=== PATIENT | male | born 1935 | race Caucasian/White ===

== ENCOUNTER 2023-07-29 07:55 | Emergency (ER) | payer BC ==
[2023-07-29 08:46] LABS: #Monocytes 0.6 thou/uL (0.11-0.59); #Neutrophils 2.4 thou/uL (1.40-6.50); %Eosinophils 0.2 % (0.0-10.0); %Lymphocytes 34.6 % (21.0-51.0); %Monocytes 13.2 % (0.0-10.0); %Neutrophils 51.6 % (42.0-75.0); Hematocrit 42.1 % (42.0-52.0); Hemoglobin 13.8 g/dL (14.0-18.0); Mean Corpuscular HGB CONC 32.8 g/dL (32.0-36.0); Mean Corpuscular Hemoglobin 26.2 pg (27.0-31.0); Mean Platelet Volume 10.9 fL (7.4-10.4); RBC Distribution Width 15.3 % (11.5-14.5); Red Blood Cell (RBC) Count 5.26 mill/uL (4.70-6.10); White Blood Cell (WBC) Count 4.6 10x3/uL (4.8-10.8)
[2023-07-29 08:48] LABS: Platelet Count 121 10x3/uL (130-400)
[2023-07-29 09:09] LABS: ALT (SGPT) 11 U/L (8-55); AST (SGOT) 16 U/L (5-34); Albumin 4.4 g/dL (3.4-4.8); Alkaline Phosphatase 79 U/L (40-110); Anion Gap 14 mmol/L (10-20); BUN (Urea Nitrogen) 30 mg/dL (8.4-25.7); Bilirubin, Total 0.5 mg/dL (0.2-1.2); Calc. Creatinine Clearance 0 mL/min (70-130); Carbon Dioxide 18 mmol/L (23-31); Chloride 109 mmol/L (98-107); Estimated GFR 32; Globulin 3.1 g/dL (2.4-3.5); Glucose 92 mg/dL (83-110); Potassium 5.5 mmol/L (3.5-5.1); Protein, Total 7.5 g/dL (5.8-8.1); Sodium 135 mmol/L (136-145); Uric Acid 6.4 mg/dL (3.5-7.2)
[2023-07-29] MEDS ORDERED: Vancomycin 1.5 GRAM/300 ML BAG 1.5 GM in Premix Bag 1 BAG IVPB SCH (09:45)
== END 2023-07-29 13:29 | disposition left against medical advice (07) ==
LOC: ERS 07:55
DX: M86.141 Other acute osteomyelitis, right hand (principal); E11.40 Type 2 diabetes mellitus with diabetic neuropathy, unspecified; Z87.891 Personal history of nicotine dependence; Z79.84 Long term (current) use of oral hypoglycemic drugs; Z79.899 Other long term (current) drug therapy
CPT/HCPCS: 36415; 80053; 84550; 85025; 96365; 96366; 96368; J0744; J3370

== ENCOUNTER 2023-08-01 13:55 | Day surgery (SDC) | payer BC ==
[~2023-08-01 13:55] MED LIST: VANCOMYCIN 1.25 GM/250 ML BAG 1.25 GM in Premix Bag 1 BAG IVPB SCH
[2023-08-01 16:15] VITALS: BP 150/72; TEMP 97.7
== END 2023-08-01 17:10 | disposition home or self-care (01) ==
LOC: ONC/OP 13:55
PROVIDERS: ATTEND Family Medicine
DX: M86.241 Subacute osteomyelitis, right hand (principal); M79.644 Pain in right finger(s); Z87.891 Personal history of nicotine dependence; Z90.49 Acquired absence of other specified parts of digestive tract; Z88.0 Allergy status to penicillin; Z79.899 Other long term (current) drug therapy
CPT/HCPCS: 96365; 96367; J0744; J3370

== ENCOUNTER 2023-10-08 10:06 | Inpatient (IN) | payer BC ==
[2023-10-08 10:41] LABS: Hematocrit 44.7 % (42.0-52.0); Hemoglobin 14.3 g/dL (14.0-18.0); Mean Corpuscular Hemoglobin 25.7 pg (27.0-31.0); Mean Corpuscular Volume 80.4 fl (78.0-98.0); Mean Platelet Volume 11.9 fL (7.4-10.4); Platelet Count 108 10x3/uL (130-400); RBC Distribution Width 15.7 % (11.5-14.5); Red Blood Cell (RBC) Count 5.56 mill/uL (4.70-6.10); White Blood Cell (WBC) Count 21.7 10x3/uL (4.8-10.8)
[2023-10-08 10:50] LABS: Delete Auto Diff?? YES; Manual Diff?? YES
[2023-10-08 11:03] LABS: ALT (SGPT) 10 U/L (8-55); AST (SGOT) 25 U/L (5-34); Albumin 3.9 g/dL (3.4-4.8); Alkaline Phosphatase 80 U/L (40-110); Anion Gap 18 mmol/L (10-20); BUN (Urea Nitrogen) 55 mg/dL (8.4-25.7); Bilirubin, Total 1.8 mg/dL (0.2-1.2); Calc. Creatinine Clearance 0 mL/min (70-130); Calcium 9.8 mg/dL (7.8-10.44); Carbon Dioxide 20 mmol/L (23-31); Chloride 103 mmol/L (98-107); Estimated GFR 18; Globulin 3.8 g/dL (2.4-3.5); Glucose 173 mg/dL (83-110); Potassium 4.1 mmol/L (3.5-5.1); Protein, Total 7.7 g/dL (5.8-8.1); Sodium 137 mmol/L (136-145)
[2023-10-08 11:11] LABS: Band 13 % (5-11); Burr Cells SLIGHT = 2-5 cells HPF (0-1); CellaVision Operator ID LAB.NR; Large Platelets 2.9 % (0-5); Lymphocytes 1 % (21-51); Monocytes 10 % (0-10); Neutrophil 76 % (42-75); Platelet Adequacy Comment Platelets Decreased; Polychromasia SLIGHT = 2-3 cells HPF (0-2); Smudge Cells 3.9 %; Total Cell Count 103; Troponin I 0.036 ng/mL (< 0.028)
[2023-10-08] MEDS ORDERED: Azithromycin 500 MG VIAL ONE (11:18)
[2023-10-08 11:26] LABS: SARS-CoV-2 NAA Rapid Test Not Detected (NotDetected)
[2023-10-08] MEDS ORDERED: cefTRIAXone (ROCEPHIN) 2 GM VIAL ONE (11:26)
[2023-10-08] MEDS ORDERED: Sodium Chloride 0.9% 100 ML ONE (11:26)
[2023-10-08 13:59] LABS: Lactic Acid 2.6 mmol/L (0.5-2.2)
[2023-10-08] MEDS ORDERED: Dextrose 50% Abboject 50 ML SYRINGE SLOW IVP PRN (14:01)
[2023-10-08] MEDS ORDERED: HumaLOG 300 UNITS/3 ML VIAL SC PRN (14:01)
[2023-10-08] MEDS ORDERED: Glucagon 1 MG/ML KIT IM PRN (14:01)
[2023-10-08] MEDS ORDERED: Dextrose 5% in Water 1,000 ML IV PRN (14:01)
[2023-10-08] MEDS ORDERED: HYDROcodone/Acetaminophen 5/325 mg Tablet PO PRN (14:04)
[2023-10-08 16:25] LABS: Bacteria/HPF 1+ HPF (None Seen); Bilirubin Negative (Negative); Blood, Urine 3+ (Negative); CAUTI Indications for Culture Acute Hematuria; Clarity Turbid (Clear); Glucose, Urine (Dipstick) Normal (Negative); Ketone, Urine Negative (Negative); Leukocyte Negative Leu/uL (Negative); Nitrite Negative (Negative); Protein, Urine (Dipstick) 100 mg/dL (Neg-Trace); RBC/HPF Greater than 50 HPF (0-3); Specific Gravity, Urine 1.024 (1.002-1.036); Squamous Epithelial 0-3 HPF (0-3); Urobilinogen Normal mg/dL (Less than 2); WBC/HPF 0-3 HPF (0-3); pH, Urine 5.5 (5.0-9.0)
[2023-10-08 16:26] LABS: Urine Culture Reflex No No
[2023-10-08 16:42] VITALS: BMI 28.7
[2023-10-08] MEDS: Heparin 5,000 UNITS/ML VIAL SC SCH ×3 (16:46→21:16)
[2023-10-08] MEDS: Sodium Chloride 0.9% 1,000 ML IV SCH (16:57)
[2023-10-08 18:37] LABS: Troponin I 0.031 ng/mL (< 0.028)
[2023-10-08] MEDS ORDERED: Atorvastatin Calcium 10 MG TAB PO SCH (21:00)
[2023-10-08] MEDS: Famotidine 20 MG TAB PO SCH (21:15)
[2023-10-09] MEDS: Sodium Chloride 0.9% 1,000 ML IV SCH ×2 (03:28→10:25)
[2023-10-09 07:13] LABS: Hematocrit 37.3 % (42.0-52.0); Hemoglobin 11.7 g/dL (14.0-18.0); Mean Corpuscular HGB CONC 31.4 g/dL (32.0-36.0); Mean Corpuscular Hemoglobin 25.8 pg (27.0-31.0); Mean Corpuscular Volume 82.3 fl (78.0-98.0); Mean Platelet Volume 10.9 fL (7.4-10.4); RBC Distribution Width 15.9 % (11.5-14.5); Red Blood Cell (RBC) Count 4.53 mill/uL (4.70-6.10); White Blood Cell (WBC) Count 7.4 10x3/uL (4.8-10.8)
[2023-10-09 07:23] LABS: Delete Auto Diff?? YES; Platelet Count 78 10x3/uL (130-400)
[2023-10-09] MEDS ORDERED: Vancomycin 1 GM in Premix 1 BAG IVPB SCH (07:30)
[2023-10-09 07:33] LABS: Anion Gap 15 mmol/L (10-20); BUN (Urea Nitrogen) 57 mg/dL (8.4-25.7); Calc. Creatinine Clearance 26 mL/min (70-130); Calcium 8.2 mg/dL (7.8-10.44); Carbon Dioxide 18 mmol/L (23-31); Chloride 109 mmol/L (98-107); Estimated GFR 25; Glucose 100 mg/dL (83-110); Potassium 4.1 mmol/L (3.5-5.1); Sodium 138 mmol/L (136-145)
[2023-10-09] MEDS: Famotidine 20 MG TAB PO SCH (08:47)
[2023-10-09] MEDS: Heparin 5,000 UNITS/ML VIAL SC SCH ×3 (08:51→20:33)
[2023-10-09] MEDS ORDERED: Vancomycin 2 GM in Sodium Chloride 0.9% 500 ML IVPB SCH (09:00)
[2023-10-09] MEDS ORDERED: cefTRIAXone\\ROCEPHIN 1 GM in Sodium Chloride 0.9% 100 ML IVPB SCH (09:00)
[2023-10-09] MEDS ORDERED: Gabapentin 100 MG CAP PO SCH (09:15)
[2023-10-09] MEDS ORDERED: Azithromycin 500 MG in Sodium Chloride 0.9% 250 ML 250 ML IVPB SCH (10:00)
[2023-10-09] MEDS ORDERED: Ondansetron PF 4 MG/2 ML Vial IVP PRN (11:22)
[2023-10-09] MEDS ORDERED: Polyethylene Glycol 3350 17 GM Packet PO PRN (11:37)
[2023-10-09] MEDS ORDERED: Docusate 100 MG CAP PO PRN (11:37)
[2023-10-09] MEDS ORDERED: Polyethylene Glycol 3350 17 GM Packet PO SCH (11:45)
[2023-10-09] MEDS ORDERED: Docusate 100 MG CAP PO SCH (11:45)
[2023-10-09] MEDS: Acetaminophen 325 MG TAB PO PRN ×2 (12:44→20:32)
[2023-10-09] MEDS ORDERED: Ipratropium/Albuterol 3 ML NEB NEB PRN (13:03)
[2023-10-09] MEDS: Atorvastatin Calcium 10 MG TAB PO SCH (16:44)
[2023-10-09] MEDS ORDERED: cefTRIAXone\\ROCEPHIN 2 GM in Sodium Chloride 0.9% 100 ML IVPB SCH (20:00)
[2023-10-09] MEDS ORDERED: Sodium Chloride 0.9% 100 ML ONE (20:14)
[2023-10-09] MEDS: guaiFENesin ER 600 MG TAB PO SCH (20:32)
[2023-10-09] MEDS: cefTRIAXone\\ROCEPHIN 2 GM in Sodium Chloride 0.9% 100 ML IVPB SCH (20:33)
[2023-10-10 00:16] LABS: Strep pneumo Urine Ag POSITIVE (NEGATIVE)
[2023-10-10] MEDS ORDERED: Benzonatate 100 MG CAP PO PRN (05:06)
[2023-10-10 08:44] LABS: Hematocrit 40.7 % (42.0-52.0); Hemoglobin 13.1 g/dL (14.0-18.0); Mean Corpuscular HGB CONC 32.2 g/dL (32.0-36.0); Mean Corpuscular Volume 80.8 fl (78.0-98.0); Mean Platelet Volume 11.6 fL (7.4-10.4); Platelet Count 103 10x3/uL (130-400); RBC Distribution Width 15.9 % (11.5-14.5); Red Blood Cell (RBC) Count 5.04 mill/uL (4.70-6.10); White Blood Cell (WBC) Count 9.8 10x3/uL (4.8-10.8)
[2023-10-10 09:04] LABS: Anion Gap 18 mmol/L (10-20); BUN (Urea Nitrogen) 41 mg/dL (8.4-25.7); Calc. Creatinine Clearance 33 mL/min (70-130); Calcium 8.4 mg/dL (7.8-10.44); Carbon Dioxide 15 mmol/L (23-31); Chloride 110 mmol/L (98-107); Estimated GFR 32; Glucose 113 mg/dL (83-110); Potassium 4.5 mmol/L (3.5-5.1); Sodium 138 mmol/L (136-145)
[2023-10-10] MEDS: Heparin 5,000 UNITS/ML VIAL SC SCH ×3 (09:22→20:04)
[2023-10-10] MEDS: guaiFENesin ER 600 MG TAB PO SCH ×2 (09:25→20:04)
[2023-10-10] MEDS: Famotidine 20 MG TAB PO SCH (09:25)
[2023-10-10] MEDS: Gabapentin 100 MG CAP PO SCH (09:25)
[2023-10-10] MEDS: Lisinopril 10 MG TAB PO SCH (09:25)
[2023-10-10] MEDS: Acetaminophen 325 MG TAB PO PRN ×2 (12:11→18:02)
[2023-10-10] MEDS: Atorvastatin Calcium 10 MG TAB PO SCH (16:51)
[2023-10-10] MEDS: cefTRIAXone\\ROCEPHIN 2 GM in Sodium Chloride 0.9% 100 ML IVPB SCH (20:04)
[2023-10-10] MEDS: Polyethylene Glycol 3350 17 GM Packet PO SCH (20:04)
[2023-10-10] MEDS: Docusate 100 MG CAP PO SCH (20:04)
[2023-10-11] MEDS: Lisinopril 10 MG TAB PO SCH (08:35)
[2023-10-11] MEDS: guaiFENesin ER 600 MG TAB PO SCH ×2 (08:35→20:09)
[2023-10-11] MEDS: Famotidine 20 MG TAB PO SCH (08:36)
[2023-10-11] MEDS: Polyethylene Glycol 3350 17 GM Packet PO SCH ×2 (08:36→20:09)
[2023-10-11] MEDS: Gabapentin 100 MG CAP PO SCH (08:36)
[2023-10-11] MEDS: Docusate 100 MG CAP PO SCH ×2 (08:36→20:09)
[2023-10-11] MEDS: Heparin 5,000 UNITS/ML VIAL SC SCH ×3 (08:41→20:23)
[2023-10-11] MEDS: Atorvastatin Calcium 10 MG TAB PO SCH (16:39)
[2023-10-11] MEDS: cefTRIAXone\\ROCEPHIN 2 GM in Sodium Chloride 0.9% 100 ML IVPB SCH (20:08)
[2023-10-11] MEDS: Acetaminophen 325 MG TAB PO PRN (20:12)
[2023-10-12] MEDS: Acetaminophen 325 MG TAB PO PRN ×2 (06:51→20:10)
[2023-10-12] MEDS: Gabapentin 100 MG CAP PO SCH (08:51)
[2023-10-12] MEDS: Polyethylene Glycol 3350 17 GM Packet PO SCH (08:51)
[2023-10-12] MEDS: Heparin 5,000 UNITS/ML VIAL SC SCH ×3 (08:51→20:22)
[2023-10-12] MEDS: Famotidine 20 MG TAB PO SCH (08:52)
[2023-10-12] MEDS: Lisinopril 10 MG TAB PO SCH (08:52)
[2023-10-12] MEDS: guaiFENesin ER 600 MG TAB PO SCH ×2 (08:52→20:10)
[2023-10-12] MEDS: Docusate 100 MG CAP PO SCH (08:52)
[2023-10-12] MEDS ORDERED: Docusate 100 MG CAP PO PRN (12:01)
[2023-10-12] MEDS ORDERED: Polyethylene Glycol 3350 17 GM Packet PO PRN (12:01)
[2023-10-12] MEDS: Atorvastatin Calcium 10 MG TAB PO SCH (16:42)
[2023-10-12 17:31] VITALS: TEMP 97.5
[2023-10-12] MEDS: cefTRIAXone\\ROCEPHIN 2 GM in Sodium Chloride 0.9% 100 ML IVPB SCH (20:10)
[2023-10-13] MEDS: Acetaminophen 325 MG TAB PO PRN (05:35)
[2023-10-13] MEDS: guaiFENesin ER 600 MG TAB PO SCH (08:05)
[2023-10-13] MEDS: Famotidine 20 MG TAB PO SCH (08:05)
[2023-10-13] MEDS: Gabapentin 100 MG CAP PO SCH (08:05)
[2023-10-13] MEDS: Lisinopril 10 MG TAB PO SCH (08:06)
[2023-10-13] MEDS: Heparin 5,000 UNITS/ML VIAL SC SCH ×2 (08:06→15:15)
[2023-10-13 12:06] VITALS: BP 115/70
[2023-10-13] MEDS: cefTRIAXone\\ROCEPHIN 2 GM in Sodium Chloride 0.9% 100 ML IVPB SCH (15:39)
== END 2023-10-13 16:35 | disposition home health service (06) | DRG 871 ==
LOC: ERS 10:06 → ERHOLD 13:43 → T4-A 14:50
PROVIDERS: ADMIT Internal Medicine; ATTEND Internal Medicine
PROC: 02HV33Z Insertion of Infusion Device into Superior Vena Cava, Percutaneous Approach (ICD-10-PCS; principal; 2023-10-13)
PROC: B5181ZA Fluoroscopy of Superior Vena Cava using Low Osmolar Contrast, Guidance (ICD-10-PCS; 2023-10-13)
PROC: B548ZZA Ultrasonography of Superior Vena Cava, Guidance (ICD-10-PCS; 2023-10-13)
PROC: 3E03329 Introduction of Other Anti-infective into Peripheral Vein, Percutaneous Approach (ICD-10-PCS; 2023-10-13)
DX: A40.3 Sepsis due to Streptococcus pneumoniae (principal); J13 Pneumonia due to Streptococcus pneumoniae; E87.20 Acidosis, unspecified; N17.9 Acute kidney failure, unspecified; E11.40 Type 2 diabetes mellitus with diabetic neuropathy, unspecified; E78.5 Hyperlipidemia, unspecified; M10.9 Gout, unspecified; G89.29 Other chronic pain; Z66 Do not resuscitate; N18.32 Chronic kidney disease, stage 3b; E86.0 Dehydration; E11.22 Type 2 diabetes mellitus with diabetic chronic kidney disease; I12.9 Hypertensive chronic kidney disease with stage 1 through stage 4 chronic kidney disease, or unspecified chronic kidney disease; E11.42 Type 2 diabetes mellitus with diabetic polyneuropathy; K59.00 Constipation, unspecified; J01.90 Acute sinusitis, unspecified; K04.7 Periapical abscess without sinus; Z90.49 Acquired absence of other specified parts of digestive tract; Z87.891 Personal history of nicotine dependence; Z88.0 Allergy status to penicillin; Z11.52 Encounter for screening for COVID-19
CPT/HCPCS: 36415; 36416; 36569; 51701; 51798; 70450; 71045; 71250; 72125; 74018; 80048; 80053; 81001; 83605; 84145; 84484; 85025; 85027; 86140; 87040; 87077; 87149; 87186; 87449; 87804; 93005; 93306; 94760; 96365; 96366; 96368; J0456; J0696; J1644; J2405; J3370; J3490; J7030; J7050; U0002

== ENCOUNTER 2023-10-23 13:54 | Outpatient (CLI) | payer BC | END 2023-10-23 13:55 | disposition home or self-care (01) | LOC: BICULT 13:54 | PROVIDERS: ATTEND Family Medicine | DX: E04.2 Nontoxic multinodular goiter (principal) | CPT/HCPCS: 76536 ==

== ENCOUNTER 2023-11-10 14:47 | Outpatient (CLI) | payer BC | END 2023-11-10 14:48 | disposition home or self-care (01) | LOC: BICRAD 14:47 | PROVIDERS: ATTEND Family Medicine | DX: R29.898 Other symptoms and signs involving the musculoskeletal system (principal); J15.3 Pneumonia due to streptococcus, group B; M41.9 Scoliosis, unspecified; M51.36 Other intervertebral disc degeneration, lumbar region; M19.09 Primary osteoarthritis, other specified site; J98.09 Other diseases of bronchus, not elsewhere classified | CPT/HCPCS: 71046; 72100 ==

== ENCOUNTER 2023-12-25 14:40 | Outpatient (CLI) | payer BC | END 2023-12-25 14:41 | disposition home or self-care (01) | LOC: SCSMRI 14:40 | PROVIDERS: ATTEND Neurological Surgery | DX: M47.12 Other spondylosis with myelopathy, cervical region (principal); M48.062 Spinal stenosis, lumbar region with neurogenic claudication; M50.01 Cervical disc disorder with myelopathy, high cervical region; M50.021 Cervical disc disorder at C4-C5 level with myelopathy; M50.022 Cervical disc disorder at C5-C6 level with myelopathy; M50.023 Cervical disc disorder at C6-C7 level with myelopathy; M47.814 Spondylosis without myelopathy or radiculopathy, thoracic region; R93.7 Abnormal findings on diagnostic imaging of other parts of musculoskeletal system; M25.78 Osteophyte, vertebrae; M89.38 Hypertrophy of bone, other site; M48.04 Spinal stenosis, thoracic region; M43.8X4 Other specified deforming dorsopathies, thoracic region; M48.02 Spinal stenosis, cervical region; J98.59 Other diseases of mediastinum, not elsewhere classified | CPT/HCPCS: 72050; 72141; 72146 ==